=== PATIENT | female | born 1960 ===

== ENCOUNTER 2022-12-13 06:11 | Day surgery (SDC) | payer OTHER ==
[~2022-12-13] VITALS: Ht 157.5 cm; Wt 72.6 kg
[2022-12-13] MEDS ORDERED: IBU600 MG PO (09:41)
== END 2022-12-13 11:40 | disposition home or self-care (01) ==
LOC: CIR.AMB 06:11
PROVIDERS: ATTEND Obstetrics & Gynecology Gynecology
DX: N85.01 Benign endometrial hyperplasia (principal); R93.89 Abnormal findings on diagnostic imaging of other specified body structures; Z20.822 Contact with and (suspected) exposure to COVID-19; Z91.041 Radiographic dye allergy status; Z88.6 Allergy status to analgesic agent

== ENCOUNTER 2025-03-04 05:38 | Day surgery (SDC) | payer OTHER ==
[2025-02-27 12:37] VITALS: BP 160/80
[~2025-03-04] VITALS: Ht 157.5 cm; Wt 63.5 kg
[~2025-03-04 05:38] MED LIST: IBU600 MG PO; RESTORIL30 M1 PO; SINGULAIR10 MG PO; TRAZODONE HCL150 MG PO; ZOLOFT25 MG PO
[2025-03-04] MEDS ORDERED: IBU600 MG PO (08:37)
== END 2025-03-04 12:00 | disposition home or self-care (01) ==
LOC: CIR.AMB 05:38
PROVIDERS: ATTEND Obstetrics & Gynecology Gynecology
DX: D06.9 Carcinoma in situ of cervix, unspecified (principal); Z91.041 Radiographic dye allergy status; Z91.013 Allergy to seafood; Z88.8 Allergy status to other drugs, medicaments and biological substances